=== PATIENT | male | born 1995 | race Caucasian/White ===

== ENCOUNTER → 2016-10-13 | Outpatient (CLI) | payer BC | LOC: BRMIMAGING 09:29 | DX: Z13.820 Encounter for screening for osteoporosis (principal) ==

== ENCOUNTER → 2017-11-18 | Outpatient (CLI) | payer BC | LOC: BMCIMAGING 15:31 | PROVIDERS: ATTEND Family Medicine | DX: S92.341A Displaced fracture of fourth metatarsal bone, right foot, initial encounter for closed fracture (principal) ==

== ENCOUNTER → 2017-12-01 | Outpatient (CLI) | payer BC | LOC: BRMIMAGING 09:02 | DX: Z13.820 Encounter for screening for osteoporosis (principal); S92.341A Displaced fracture of fourth metatarsal bone, right foot, initial encounter for closed fracture ==